=== PATIENT | male | born 1960 | race Caucasian/White ===

== ENCOUNTER 2017-05-30 08:35 | Emergency (ER) | payer OTHER, BC ==
[2017-05-30 08:40] VITALS: BP 191/104
[2017-05-30] MEDS ORDERED: LIDOCAINE HCL 20 ML VIAL ONE (08:47)
--- NOTE | 2017-05-30 09:35 | ERNOTE ---
Medical Problem HPI - General Chief Complaint: Laceration Time Seen by Provider: 05/30/17 08:50 Source: patient Exam Limitations: no limitations - Immun/Allergies/Home Medications Immunizations: IMMUNIZATION HX Immunizations Up to Date Yes History of Influenza Vaccine Yes Allergies/Adverse Reactions: Allergies No Known Allergies Allergy (Unverified 05/30/17 08:38) Home Medications: HOME MEDICATIONS Alprazolam [Xanax] 0.25 mg PO TID PRN 05/30/17 [Last Taken Unknown] Pregabalin [Lyrica] 75 mg PO DAILY 05/30/17 [Last Taken Unknown] - History of Present History Narrative: Pt was moving a piece of plywood and it slipped and the edge of it caught him on the region of the left frontal bone causing a 5 cm laceration on the frontal adjacent to the parietal region on the left-hand side Timing: constant Severity: mild Review of Systems - Review of Systems Constitutional: Present: See HPI EYE: Present: no symptoms reported ENT: Present: no symptoms reported Respiratory: Present: no symptoms reported Cardiology: Present: no symptoms reported Gastrointestinal/Abdominal: Present: no symptoms reported Genitourinary: Present: no symptoms reported Musculoskeletal: Present: no symptoms reported Skin: Present: See HPI Neurological: Present: no symptoms reported Endocrine: Present: no symptoms reported Hematologic/Lymphatic: Present: no symptoms reported Psych: Present: no symptoms reported - Patient's Past Medical History Patient History - Medical: Anxiety, Chronic Pain, Depression Patient History - Cardiac/Respiratory: No pertinent hx Patient History - Cancer: No Hx of Cancer Patient History - Surgical Procedures: No surgical history Patient History - Other: None - Social History Smoking Status: Never smoker Have you smoked in the past 12 months: No - Immunizations Immunizations Up to Date: Yes History of Influenza Vaccine: Yes Physical Exam - Physical Exam General Appearance: Present: wd/wn, alert, mild distress Head Exam: Present: other - 5 cm laceration as already noted Eye Exam: Normal inspection: bilateral, PERRL: bilateral Ears, Nose, Throat: Present: normal ENT inspection, H, normal pharynx Neck: Present: normal inspection, nontender Respiratory: Present: no respiratory distress, normal breath sounds, no accessory muscle use, chest nontender, lungs clear Cardiovascular/Chest: Present: regular rate, rhythm, no murmur, normal peripheral pulses Gastrointestinal/Abdominal: Present: normal bowel sounds, nontender, nondistended, soft, no organomegaly Rectal Exam: Present: deferred Back Exam: Present: normal inspection, normal range of motion Extremity Exam: Present: normal inspection, non-tender, no edema, normal range of motion Neurological Exam: Present: alert, oriented, normal mood/affect Skin Exam: Present: normal color, warm/dry Lymphatic Exam: Present: no adenopathy ED Progress - Vital Signs Patient's Vital Signs:: I have reviewed the patient's vital signs. Vital Signs: Vital Signs 05/30/17 08:38 Pulse Rate 98 Respiratory 12 Rate Blood Pressure 191/104 O2 Sat by Pulse 96 Oximetry - Progress/Reassessment Chief Complaint: Laceration Progress:: Improved Procedures Left Frontal Anesthesia: 1% Lidocaine I & D Prep: sterile drapes applied, sterile dressing applied Wound's Depth/Shape: into subcutaneous Wound Explored: clean Wound Intervention: irrigated w/saline Foreign body identified: wood Distal NVT: neuro/vasc intact, no tendon injury Suture Size/Type: 4-0 Number of Sutures: 9 Layer Closure: Simple Estimated blood loss (ml): 5 Wound Dressing: sterile dressing applied Complications: Pt frankie procedure well Plan - Plan Plan: Even though the laceration is on the head I believe believe the stitches in for 7 days he had nicked several small arterioles so upon closure the wound there was mild to moderate hematoma underneath. Pressure bandage was applied that he can take off tonight his tetanus is up-to-date and we will see him or his family physician was seen in the 7 days for suture removal. Departure - Departure Clinical Impression: Laceration Disposition: Home self-care Condition: Good Instructions: Laceration Care, Adult, [id number]
--- OUTSIDE RECORDS SUMMARY | 2017-05-30 09:36 | XMS REPORT | Encounter Summary ---
:1960 Author Organization [facility] Address [place] [address] Care Team Providers Name Role Phone Unavailable Primary Care Provider Unavailable Encounter Details Date Type Department Care Team Description 11/29/2016 Orders Only [facility] Kain Gonzalez MD Microhematuria Urology [address] [place] [address] [place] [address] Social History Tobacco Use Types Packs/Day Years Used Date Former Smoker Smokeless Tobacco: Never Used Alcohol Use Drinks/Week oz/Week Comments Yes Alcoholic Drinks/day: CURRENT ALCOHOL USER Sex Assigned at Date Recorded Not on file as of this encounter Plan of Treatment Not on fileas of this encounter Results Urinalysis with microscopic (11/29/2016) Specimen Performing Laboratory Cln Catch EXTERNAL NON UPH - NO INTERFACE in this encounter Visit Diagnoses Diagnosis Microhematuria Microscopic hematuria in this encounter
--- OUTSIDE RECORDS SUMMARY | 2017-05-30 09:36 | XMS REPORT | Encounter Summary ---
:1960 Author Organization [employer] [place] [address] Care Team Providers Name Role Phone Unavailable Primary Care Provider Unavailable Encounter Details Date Type Department Care Team Description 10/31/2016 Orders Only [facility] Provider, Not In Centralized Scanning System Social History Tobacco Use Types Packs/Day Years Used Date Former Smoker Sex Assigned at Date Recorded Not on file as of this encounter Plan of Treatment Not on fileas of this encounter Results Urinalysis with microscopic (10/28/2016)in this encounter Visit Diagnoses Not on filein this encounter
--- OUTSIDE RECORDS SUMMARY | 2017-05-30 09:36 | XMS REPORT | Encounter Summary ---
:1960 Author Organization [facility] [place] [address] Care Team Providers Name Role Phone Unavailable Primary Care Provider Unavailable Reason for Visit Reason Comments New Patient Encounter Details Date Type Department Care Team Description 11/29/2016 Office Visit [facility] Kain Gonzalez Microhematuria (Primary Urology MD [facility]) [address] [address] [place] [address] Social History Tobacco Use Types Packs/Day Years Used Date Former Smoker Smokeless Tobacco: Never Used Alcohol Use Drinks/Week oz/Week Comments Yes Alcoholic Drinks/day: CURRENT ALCOHOL USER Sex Assigned at Date Recorded Not on file as of this encounter Last Filed Vital Signs Vital Sign Reading Time Taken Blood Pressure 160/89 11/29/2016 11:57 AM MUNICIPAL ENGINEER Pulse 82 11/29/2016 11:57 AM MUNICIPAL ENGINEER Temperature 36.2 C (97.2 F) 11/29/2016 11:57 AM MUNICIPAL ENGINEER Respiratory Rate 18 11/29/2016 11:57 AM MUNICIPAL ENGINEER Oxygen Saturation - - Inhaled Oxygen Concentration - - Weight 129.8 kg (286 lb 3.2 oz) 11/29/2016 11:57 AM MUNICIPAL ENGINEER Height 180.3 cm (5' 11") 11/29/2016 11:57 AM MUNICIPAL ENGINEER Body Mass Index 39.92 11/29/2016 11:57 AM MUNICIPAL ENGINEER in this encounter Progress Notes Kain Gonzalez MD - 11/29/2016 6:24 PM CSTFormatting of this note may be different from the original. Seen at [facility] Subjective: 56 y.o. male seen at the request of Dr. Hazel for an opinion and management of microhematuria. Microhematuria was detected on recent routine urinalyses. He has a remote history of passing stones many years ago. He quit smoking about 12 years ago. He denies any visible hematuria. No flank pain. No bothersome voiding complaints. No BPH medications, voids with an AUA symptom score of 7. Dr. Hazel had ordered a CT urogram. He has a $7000 deductible and declined to get the CT scan completed. He has a family history of prostate cancer in his father. Complete ROS is negative. ROS, PMH, PSH, FH, SH all can be seen as a scanned document dated 11/29/2016. History reviewed. No pertinent past medical history. Past Surgical History Procedure Laterality Date Colonoscopy Colonoscopy: Colonoscopy Colonoscopy: Medication Sig acetaminophen (TYLENOL 8 HOUR) 650 MG CR tablet Take 650 mg by mouth every 8 ( eight) hours as needed for Pain. ALPRAZolam (XANAX) 0.25 MG tablet Take 0.25 mg by mouth nightly as needed for Sleep. B Frbgpio-H-Pbile Acid (STRESS B COMPLEX PO) Take 1 tablet by mouth daily. Multiple Vitamins-Minerals (MULTIVITAMIN ADULT PO) Take by mouth. Naproxen Sodium 220 MG CAPS Take 220 mg by mouth. pregabalin (LYRICA) 75 MG capsule Take 75 mg by mouth 2 (two) times daily. [id number]-[id number] PO Take by mouth. No Known Allergies Social History Social History Marital Status: Spouse Name: N/A Number of Children: N/A Years of Education: N/A Occupational History Not on file. Social History Main Topics Smoking status: Former Smoker Smokeless tobacco: Never Used Alcohol Use: Yes Comment: Alcoholic Drinks/day: CURRENT ALCOHOL USER Drug Use: No Sexual Activity: Yes Other Topics Concern Are You Having Sex? Yes Caffeine Use No Seat Belt/Car Seat Yes Social History Narrative Objective: BP 160/89 mmHg | Pulse 82 | Temp(Src) 36.2 C (97.2 F) (Tympanic) | Resp 18 | Ht 1.803 m (5' 11") | Wt 129.819 kg (286 lb 3.2 oz) | BMI 39.93 kg/m2 General: Alert, no distress. Neck: Soft, no lymphadenopathy. Chest: Good inspiratory effort, heart regular rate. Abdomen: Obese, soft, non-tender. No CVAT. : Penis is circumcised, no lesions. Meatus is normal. Testes are descended bilaterally, smooth, no mass. Scrotal skin is normal. JADA: Normal tone. Prostate is 20g, smooth, No nodules. LE: No edema. Normal gait. Labs from October 19, 2016: Creatinine was 0.98, PSA was 1.53. Urinalysis showed 2+ blood, 11-20 red blood cells per high-power field. He reports a urinalysis done a couple weeks after the initial that showed no blood although I do not have that result. Assessment& Plan: 56 y.o. male with microhematuria, family history of prostate cancer. He declines microhematuria evaluation secondary to cost. We discussed the low but not 0 (perhaps 3-5%) probability of significant findings of the microhematuria evaluation. This is a risk he is willing to accept. He would like to submit another urinalysis today and repeat a urinalysis in about 6 months. Those orders will be completed. He voices understanding of the plan. Kain Gonzalez MD, FACS Cc: Dr. Pereira this encounter Plan of Treatment Name Priority Associated Diagnoses Order Schedule Urinalysis with microscopic Routine Microhematuria Expected: 05/29/2017 (Approximate), Expires: 11/29/2017 as of this encounter Results Urinalysis with microscopic (11/29/2016) Specimen Performing Laboratory Cln Catch EXTERNAL NON UPH - NO INTERFACE in this encounter Visit Diagnoses Diagnosis Microhematuria - Primary Microscopic hematuria in this encounter
--- OUTSIDE RECORDS SUMMARY | 2017-05-30 09:36 | XMS REPORT | Clinical Summary ---
:1960 Author Organization [facility] [place] [address] Care Team Providers Name Role Phone Unavailable Primary Care Provider Unavailable Source Comments This disclosure is being made pursuant to the [employer] program and maynot contain all information available regarding this patient.Swrve Allergies No Known Allergies Current Medications Be aware that medications may not be up to date as of this document. Alwaysverify current medications with the patient. Prescription Sig. Disp. Refills Start Date End Date Status Naproxen Sodium 220 MG Take 220 mg by Active CAPS mouth. [id number] Take by mouth. Active SHOIL PO Multiple Take by mouth. Active Vitamins-Minerals (MULTIVITAMIN ADULT PO) ALPRAZolam (XANAX) 0.25 Take 0.25 mg by Active MG tablet mouth nightly as needed for Sleep. pregabalin (LYRICA) 75 MG Take 75 mg by mouth Active capsule 2 (two) times daily. B Eeelaix-O-Kvhtj Acid Take 1 tablet by Active (STRESS B COMPLEX PO) mouth daily. acetaminophen (TYLENOL 8 Take 650 mg by Active HOUR) 650 MG CR tablet mouth every 8 (eight) hours as needed for Pain. Active Problems Problem Noted Date Microhematuria 11/29/2016 Family history of malignant neoplasm of gastrointestinal tract 11/25/2012 Overview: Overview: MARANDA GARCIA DO History of colonic polyps 11/25/2012 Overview: Overview: MARANDA GARCIA DO Special screening for malignant neoplasms, colon 11/25/2012 Overview: Overview: MARANDA GARCIA DO Pain in joint, shoulder region 11/03/2010 Overview: Overview: RAFAEL BUSTILLOS DO Family History Medical History Relation Name Comments Prostate cancer Father Other Other Prostate cancer - All Family: Noted on 2010-11-03 09:04:17 Relation Name Status Comments Father Other Social History Tobacco Use Types Packs/Day Years Used Date Former Smoker Smokeless Tobacco: Never Used Alcohol Use Drinks/Week oz/Week Comments Yes Alcoholic Drinks/day: CURRENT ALCOHOL USER Sex Assigned at Date Recorded Not on file Last Filed Vital Signs Vital Sign Reading Time Taken Blood Pressure 160/89 11/29/2016 11:57 AM MAILING SPECIALIST Pulse 82 11/29/2016 11:57 AM MAILING SPECIALIST Temperature 36.2 C (97.2 F) 11/29/2016 11:57 AM MAILING SPECIALIST Respiratory Rate 18 11/29/2016 11:57 AM MAILING SPECIALIST Oxygen Saturation - - Inhaled Oxygen Concentration - - Weight 129.8 kg (286 lb 3.2 oz) 11/29/2016 11:57 AM MAILING SPECIALIST Height 180.3 cm (5' 11") 11/29/2016 11:57 AM MAILING SPECIALIST Body Mass Index 39.92 11/29/2016 11:57 AM MAILING SPECIALIST Plan of Treatment Health Maintenance Due Date Last Done Comments Hepatitis C Screening 1977 Tetanus/Pertussis (1 - Tdap) 1978 Well Adult Visit 2009 INFLUENZA IMMUNIZATION (#1) 2017 Colon CA Screening-Colonoscopy 12/15/2019 12/14/2009, 12/27/2006 Results Not on filefrom Last 3 Months Insurance Payer Benefit Plan / Subscriber ID Type Phone Address Group [employer] [facility] [id number] [place] of [place] [phone] [id number] [facility] PROVIDERS ONLY [address] [place] [address]
== END 2017-05-30 09:52 | disposition home or self-care (01) ==
LOC: ER 08:35
PROC: 0JQ00ZZ Repair Scalp Subcutaneous Tissue and Fascia, Open Approach (ICD-10-PCS; principal; 2017-05-30)
DX: S01.01XA Laceration without foreign body of scalp, initial encounter (principal); X58.XXXA Exposure to other specified factors, initial encounter; Y93.9 Activity, unspecified; Y92.9 Unspecified place or not applicable; Y99.9 Unspecified external cause status